=== PATIENT | male | born 1935 | race Caucasian/White ===

== ENCOUNTER 2023-08-08 10:25 | Observation (INO) ==
[2023-08-08] MEDS: NS 0.9% 1000 ml BAG 1,000 ML IV ONE (12:28)
[2023-08-08 12:38] LABS: Urine Appearance Turbid; Urine Bilirubin 1+ (Negative); Urine Blood 2+ (Negative); Urine Color Dark-Yellow; Urine Glucose Negative (Negative); Urine Ketones Negative (Negative); Urine Nitrite Negative (Negative); Urine Protein 1+ (>=30 mg/dL) (Negative); Urine Specific Gravity 1.027 (1.002-1.030); Urine Urobilinogen 2+ (Negative); Urine pH 5.5 (5.0-8.0)
[2023-08-08 12:40] LABS: ABS Lymphocytes 0.6 10^3/uL (1.0-4.8); ABS Monocytes 0.6 10^3/uL (0.0-1.1); ABS Neutrophils 11.2 10^3/uL (1.5-7.6); ABS Nucleated RBC 0.01 10^3/ul; Eosinophil % 0.1 %; Hematocrit 44.8 % (38-53); Hemoglobin 14.9 g/dL (13.2-16.3); Lymphocyte % 4.6 %; Mean Corpuscular Hemoglobin 31.1 pg (27-33); Mean Corpuscular Hgb Conc 33.2 g/dL (31-36); Mean Corpuscular Volume 93.8 fL (80-97); Mean Platelet Volume 8.2 fL (7.5-11.2); Nucleated Red Blood Cells % 0.1 %/100WBC (0.0-0.8); Platelet Count 110 10^3/uL (150-450); Red Blood Count 4.77 10^6/uL (4.06-5.63); White Blood Count 12.4 10^3/uL (3.6-10.2)
[2023-08-08 12:41] LABS: Urine Bacteria Absent /HPF (Absent); Urine Red Blood Cell 3+(>10/hpf) /HPF (0-Trace); Urine Squamous Epithelial Cell Present /HPF (Absent); Urine White Blood Cell Trace(0-5/hpf) /HPF (0-Trace)
[2023-08-08 13:05] LABS: High Sens Troponin Baseline 31 pg/mL (<20); INR 1.08 (0.83-1.13)
[2023-08-08 13:37] LABS: ALT 690 U/L (7-52); Albumin 3.9 g/dL (3.2-5.2); Albumin/Globulin Ratio 1.4 (1-3); Alkaline Phosphatase 204 U/L (35-149); Anion Gap 14 mmol/L (2-16); Blood Urea Nitrogen 29 mg/dL (6-24); CO2 Carbon Dioxide 22 mmol/L (22-32); Calcium 9.1 mg/dL (8.6-10.3); Chloride 103 mmol/L (101-111); Creatine Kinase 40 U/L (10-223); Creatinine, Serum 1.06 mg/dL (0.67-1.17); Globulin 2.8 g/dL (2-4); Glucose 166 mg/dL (70-100); Magnesium 1.8 mg/dL (1.9-2.7); Sodium 139 mmol/L (135-145); Total Bilirubin 2.8 mg/dL (0.2-1.0); Total Protein 6.7 g/dL (6.4-8.9); eGFR CKD-EPI 67.1 (>60)
[2023-08-08] MEDS: Iodixanol (CONTRAST) 320 MG/ML 100 ML SDV IV ONE (14:09)
[2023-08-08 14:33] LABS: High Sensitivity Troponin 1 Hr 29 pg/mL (<20)
[2023-08-08 14:39] LABS: Lipase 32 U/L (11.0-82.0)
[2023-08-08] MEDS ORDERED: Al Hydrox/Mg Hydrox/Simet LIQ 30 ML UDC PO PRN (16:29)
[2023-08-08] MEDS ORDERED: Polyethylene Glycol 3350 17 GM PACKET PO PRN (16:29)
[2023-08-08] MEDS: Enoxaparin 40 MG/0.4 ML SYR SUBCUT SCH (17:19)
[2023-08-08] MEDS: Furosemide 40 mg/4 ml IV VIAL IV ONE (17:20)
[2023-08-08] MEDS: Magnesium Sulfate IV 1GM/100ML 1 GM/100 ML BAG IV ONE (17:20)
[2023-08-09 06:36] LABS: ABS Eosinophils 0.1 10^3/uL (0.0-0.5); ABS Lymphocytes 0.9 10^3/uL (1.0-4.8); ABS Monocytes 0.5 10^3/uL (0.0-1.1); ABS Neutrophils 7.2 10^3/uL (1.5-7.6); ABS Nucleated RBC 0.01 10^3/ul; Eosinophil % 1.1 %; Hematocrit 40.8 % (38-53); Hemoglobin 13.7 g/dL (13.2-16.3); Lymphocyte % 10.1 %; Mean Corpuscular Hemoglobin 31.4 pg (27-33); Mean Corpuscular Hgb Conc 33.6 g/dL (31-36); Mean Corpuscular Volume 93.4 fL (80-97); Mean Platelet Volume 8.3 fL (7.5-11.2); Nucleated Red Blood Cells % 0.1 %/100WBC (0.0-0.8); Platelet Count 102 10^3/uL (150-450); Red Blood Count 4.37 10^6/uL (4.06-5.63); Red Cell Distribution Width 13.9 % (12-17); White Blood Count 8.7 10^3/uL (3.6-10.2)
[2023-08-09 07:16] LABS: Calcium 8.8 mg/dL (8.6-10.3); Creatinine, Serum 1.06 mg/dL (0.67-1.17); Potassium 3.9 mmol/L (3.5-5.0); eGFR CKD-EPI 67.1 (>60)
[2023-08-09] MEDS: Furosemide 40 mg/4 ml IV VIAL IV SLOW PU ONE (08:47)
[2023-08-09 10:52] LABS: Albumin 3.6 g/dL (3.2-5.2); Albumin/Globulin Ratio 1.4 (1-3); Direct Bilirubin 1.3 mg/dL (0.03-0.18); Globulin 2.6 g/dL (2-4); Indirect Bilirubin 1.2 mg/dL (0.3-1.0); Total Bilirubin 2.5 mg/dL (0.2-1.0); Total Protein 6.2 g/dL (6.4-8.9)
[2023-08-09 10:58] VITALS: BP 112/63
== END 2023-08-09 12:07 | disposition home or self-care (01) ==
LOC: EDHOLD 10:25 → ED 10:25 → EDHOLD 08-09 12:06
PROVIDERS: ADMIT Internal Medicine; ATTEND Internal Medicine